=== PATIENT | female | born 1945 | race Caucasian/White ===

== ENCOUNTER 2020-11-26 21:59 | Emergency (ER) | payer MEDICARE, BC ==
--- NOTE | 2020-11-27 00:59 | EDM.PDOC ---
ED HPI GENERAL MEDICAL PROBLEM - General Chief Complaint: Lower Extremity Injury/Pain Stated Complaint: SWOLLEN RT LEG/ RT KNEE PAIN Time Seen by Provider: 11/26/20 23:52 Source of Information: Reports: Patient History Limitations: Reports: No Limitations - History of Present Illness INITIAL COMMENTS - FREE TEXT/NARRATIVE: The patient presents with right leg swelling. She has some pain also. She went on a long car ride last week over [place] in 3 to 4 days. She has no history of CVT or PE. She has no chest pain or shortness of breath. She has known arthritis to her right knee. She did see Dr Cat a few years ago but it was not time to have any replacement. Onset: Gradual Duration: Day(s): Location: Reports: Lower Extremity, Right Quality: Reports: Ache Severity: Mild Improves with: Reports: None Worsens with: Reports: None Associated Symptoms: Reports: No Other Symptoms Right Knee Pain Score (Numeric/FACES): 8 - Related Data Allergies Allergy/AdvReac Type Severity Reaction Status Date / Time No Known Allergies Allergy Verified 11/26/20 22:53 Home Meds: Home Meds Ezetimibe 10 mg PO DAILY 11/26/20 [History] Levothyroxine 112 mcg PO DAILY 11/26/20 [History] Sertraline [Zoloft] 100 mg PO DAILY 11/26/20 [History] Triamterene/Hydrochlorothiazid [Triamterene-HCTZ 37.5-25 MG] 1 cap PO DAILY 11/26/20 [History] Social & Family History - Tobacco Use Tobacco Use Status *Q: Never Tobacco User Review of Systems - Review of Systems Review Of Systems: See Below Constitutional: Reports: No Symptoms Eyes: Reports: No Symptoms Ears: Reports: No Symptoms Nose: Reports: No Symptoms Mouth/Throat: Reports: No Symptoms Respiratory: Reports: No Symptoms Cardiovascular: Reports: No Symptoms GI/Abdominal: Reports: No Symptoms Genitourinary: Reports: No Symptoms Musculoskeletal: Reports: Other (Right leg swelling and pain) ED EXAM, GENERAL - Physical Exam Exam: See Below Exam Limited By: No Limitations General Appearance: Alert, No Apparent Distress Ears: Normal External Exam Nose: Normal Inspection Head: Atraumatic, Normocephalic Neck: Normal Inspection Respiratory/Chest: No Respiratory Distress, Lungs Clear, Normal Breath Sounds Cardiovascular: Regular Rate, Rhythm, No Edema, No Murmur GI/Abdominal: Soft, Non-Tender, No Organomegaly, No Mass Extremities: Other (1+ edema to the right leg. Good sensation and pulses distally.) Course - Vital Signs Last Recorded V/S: Last Vital Signs Temp 98.6 F 11/26/20 22:49 Pulse 96 11/26/20 22:49 Resp 20 11/26/20 22:49 BP 191/88 H 11/26/20 22:49 Pulse Ox 96 11/26/20 22:49 - Orders/Labs/Meds Orders: Active Orders 24 hr Category Date Time Status VL Duplex Lwr Ext Veins Ltd Rt [US] Stat Exams 11/27/20 00:06 Taken - Re-Assessments/Exams Free Text/Narrative Re-Assessment/Exam: 11/27/20 00:58 I ordered an US of her right leg and it was negative for DVT. I will discharge her home. Departure - Departure Time of Disposition: 01:05 Disposition: Home, Self-Care 01 Condition: Good Clinical Impression: Right leg swelling - Discharge Information *PRESCRIPTION DRUG MONITORING PROGRAM REVIEWED*: Not Applicable *COPY OF PRESCRIPTION DRUG MONITORING REPORT IN PATIENT MAN: Not Applicable Referrals: Viviana Cobian MD [Primary Care Provider] - Jonathan Cat MD [Physician] - 2 Weeks Forms: ED Department Discharge Additional Instructions: Ice your knee for 15 minutes 3 times per day for 2 days. Try to elevate your leg when sitting or laying down. Take tylenol or motrin as needed for pain. Follow up with Dr Cat in a couple of weeks. Please return if you are worse. Sepsis Event Note (ED) - Focused Exam Vital Signs: Vital Signs Temp Pulse Resp BP Pulse Ox 11/26/20 22:49 98.6 F 96 20 191/88 H 96 - My Orders Last 24 Hours: My Active Orders 11/27/20 00:06 VL Duplex Lwr Ext Veins Ltd Rt [US] Stat - Assessment/Plan Last 24 Hours: My Active Orders 11/27/20 00:06 VL Duplex Lwr Ext Veins Ltd Rt [US] Stat
--- NOTE | 2020-11-27 07:39 | US ---
Right lower extremity deep venous ultrasound: Duplex and color Doppler evaluation was obtained of the right common femoral, proximal greater saphenous, superficial femoral, popliteal, posterior tibial and peroneal veins. Left common femoral vein was also evaluated. Comparison: No prior venous imaging is available. Findings: Normal phasic flow, augmentation and compression are seen within the visualized veins. Impression: 1. No findings of deep venous thrombosis within the right lower extremity or within the left common femoral vein. Diagnostic code #1 I agree with preliminary report from [facility], finalized on 11/27/20, 3:19 AM CDT, code 1
== END 2020-11-27 01:21 | disposition home or self-care (01) ==
LOC: JD.ED 21:59
DX: M79.89 Other specified soft tissue disorders (principal); R60.0 Localized edema; Z79.899 Other long term (current) drug therapy
CPT/HCPCS: 93971-26-RT; 93971-RT; 99283-25

== ENCOUNTER 2021-08-12 00:43 | Emergency (ER) | payer MEDICARE, BC ==
[2021-08-12] MEDS ORDERED: HYDROmorphone 0.5 MG/0.5 ML Syringe IM ONE (01:38)
[2021-08-12] MEDS ORDERED: Ketorolac 60 MG/2 ML SDV IM ONE (01:38)
[2021-08-12] MEDS ORDERED: Cyclobenzaprine 10 MG Tab PO ONE (01:38)
[2021-08-12] MEDS ORDERED: Acetaminophen/HYDROcodone 325-5 MG Tab PO ONE (03:04)
== END 2021-08-12 03:18 | disposition home or self-care (01) ==
LOC: JD.ED 00:43
DX: M54.41 Lumbago with sciatica, right side (principal); E03.9 Hypothyroidism, unspecified
CPT/HCPCS: 72131; 81003; 96372; 99284; A9270; J1170; J1885; 99283

== ENCOUNTER 2021-09-27 11:40 | Emergency (ER) | payer MEDICARE, BC | END 2021-09-27 13:04 | disposition home or self-care (01) | LOC: JD.ED 11:40 | DX: M51.16 Intervertebral disc disorders with radiculopathy, lumbar region (principal); E03.9 Hypothyroidism, unspecified; Z79.899 Other long term (current) drug therapy | CPT/HCPCS: 99283 ==